=== PATIENT | female | born 1985 | race Two or more races ===

== ENCOUNTER 2023-09-25 18:48 | Inpatient (IN) | payer BC, MEDICAID ==
[~2023-09-25] VITALS: Ht 154.9 cm; Wt 74.7 kg
[2023-09-25 20:04] LABS: Basophils # (auto) 0.1 10 ^3/uL (0-0.2); Basophils % (auto) 0.4 % (0.0-2.0); Eosinophils # (auto) 0.1 10 ^3/uL (0-0.8); Eosinophils % (auto) 0.3 % (0.0-7.0); Hematocrit 43.7 % (36.0-46.0); Hemoglobin 14.2 g/dL (12.2-16.2); Lymphocytes # (auto) 2.8 10 ^3/uL (0.4-5.4); Lymphocytes % (auto) 11.3 % (10.0-50.0); Mean Corpuscular Hemoglobin 30.5 pg (28.0-32.0); Mean Corpuscular Hgb Conc. 32.4 g/dL (32.0-36.0); Mean Corpuscular Volume 94.1 fL (80.0-100.0); Monocytes # (auto) 1.5 10 ^3/uL (0-1.3); Monocytes % (auto) 6.3 % (0.0-12.0); Neutrophils # (auto) 19.9 10 ^3/uL (1.6-8.6); Neutrophils % (auto) 81.7 % (37.0-80.0); Red Blood Cells 4.65 10^6/uL (4.0-5.20); Red Cell Distribution Width 14.3 % (11.8-14.3); White Blood Cell 24.4 10^3/uL (4.4-10.8)
[2023-09-25 20:23] LABS: Alanine Aminotransferase < 9 U/L (7-40); Albumin 4.5 g/dL (3.2-4.8); Alkaline Phosphatase 76 U/L (46-116); Anion Gap 7 (5-15); Aspartate Aminotransferase 10 U/L (13-40); BUN/Creatinine Ratio 9.9 (10.0-20.0); Bilirubin, Total 1.2 mg/dL (0.2-1.0); Blood Urea Nitrogen 8 mg/dL (9-23); Calcium 9.6 mg/dL (8.5-10.1); Carbon Dioxide 25 mmol/L (20-30); Chloride 107 mmol/L (98-107); Glucose 94 mg/dL (74-106); Potassium 4.5 mmol/L (3.5-5.1); Sodium 139 mmol/L (136-145); Total Protein 7.3 g/dL (5.7-8.2)
[2023-09-25] MEDS: KETOROLAC TROMETH 60MG/2ML VIAL IM ONE (20:35)
[2023-09-25 21:00] VITALS: PULSE 91; RESP 20; O2SAT 96
[2023-09-25] MEDS ORDERED: ACETAMINOPHEN 325 MG TAB PO PRN (21:30)
[2023-09-25] MEDS ORDERED: metroNIDAZOLE 500MG/100ML 100 ML IV ONE (21:45)
[2023-09-25 22:04] LABS: INR 1.04 (0.9-1.15); Partial Thromboplastin Time 30.3 SEC (24.5-34.5); Prothrombin Time 10.9 sec (9.3-11.8)
[2023-09-25] MEDS: PIPERACILLIN-TAZOB 3.375GM 100 ML IV ONE (22:18)
[2023-09-25] MEDS: SODIUM CHLORIDE 0.9% 1,000 ML IV ONE (22:19)
[2023-09-25] MEDS: metroNIDAZOLE 500MG/100ML 100 ML IV ONE (22:19)
[2023-09-25] MEDS ORDERED: MORPHINE SULFATE INJ 2 MG/ml SYRG IV PRN (22:45)
[2023-09-25] MEDS ORDERED: NITROGLYCERIN 0.4 MG SL TAB SL PRN (22:45)
[2023-09-26] VITALS (7 sets, daily range): BP systolic 92–106; BP diastolic 50–63; PULSE 71–83; RESP 12–18; TEMP 97.6–100; O2SAT 97–98
[2023-09-26] MEDS: D5W/SOD CHLO 0.9% 1,000 ML IV SCH (01:32)
[2023-09-26] MEDS: ONDANSETRON HCL 4 MG/2 ML VIAL IV PRN (01:56)
[2023-09-26] MEDS: MORPHINE SULFATE INJ 2 MG/ml SYRG IV PRN (01:56)
[2023-09-26 02:10] LABS: Urine Bacteria FEW /hpf (None Seen); Urine Blood 3+ /uL (Negative); Urine Clarity HAZY (Clear); Urine Color Yellow (Yellow); Urine Protein, UAD 1+ (Negative); Urine Specific Gravity 1.023 (1.001-1.035); Urine Urobilinogen Normal (Negative); Urine WBC 12 /hpf (0 - 5); Urine pH 6.5 (5.0-8.0)
[2023-09-26 05:56] LABS: Basophils # (auto) 0.1 10 ^3/uL (0-0.2); Basophils % (auto) 0.6 % (0.0-2.0); Eosinophils # (auto) 0.1 10 ^3/uL (0-0.8); Eosinophils % (auto) 0.8 % (0.0-7.0); Hematocrit 37.2 % (36.0-46.0); Hemoglobin 12.5 g/dL (12.2-16.2); Lymphocytes # (auto) 2.9 10 ^3/uL (0.4-5.4); Lymphocytes % (auto) 17.8 % (10.0-50.0); Mean Corpuscular Hemoglobin 31.4 pg (28.0-32.0); Mean Corpuscular Hgb Conc. 33.5 g/dL (32.0-36.0); Mean Corpuscular Volume 93.5 fL (80.0-100.0); Monocytes # (auto) 1.1 10 ^3/uL (0-1.3); Monocytes % (auto) 6.9 % (0.0-12.0); Neutrophils # (auto) 12.2 10 ^3/uL (1.6-8.6); Neutrophils % (auto) 73.9 % (37.0-80.0); Nucleated Red Blood Cells % 0.1 %; Red Blood Cells 3.98 10^6/uL (4.0-5.20); Red Cell Distribution Width 14.5 % (11.8-14.3); White Blood Cell 16.6 10^3/uL (4.4-10.8)
[2023-09-26 06:14] LABS: Albumin 3.4 g/dL (3.2-4.8); Alkaline Phosphatase 58 U/L (46-116); Anion Gap 5 (5-15); Aspartate Aminotransferase < 8 U/L (13-40); BUN/Creatinine Ratio 10.5 (10.0-20.0); Bilirubin, Total 1.1 mg/dL (0.2-1.0); Blood Urea Nitrogen 8 mg/dL (9-23); Calcium 8.1 mg/dL (8.7-10.4); Carbon Dioxide 23 mmol/L (20-30); Chloride 111 mmol/L (98-107); Glucose 93 mg/dL (74-106); Potassium 3.9 mmol/L (3.5-5.1); Sodium 139 mmol/L (136-145); Total Protein 5.7 g/dL (5.7-8.2)
[2023-09-26 06:21] LABS: Alanine Aminotransferase < 9 U/L (7-40)
[2023-09-26] MEDS: metroNIDAZOLE 500MG/100ML 100 ML IV SCH (06:44)
[2023-09-26] MEDS: cefTRIAXone 1GM/50ML D5W 50 ML IV SCH (09:49)
[2023-09-26] MEDS: HYDROcodone-ACET 5/325MG TAB PO PRN (09:49)
[2023-09-26] MEDS: ACETAMINOPHEN IV 1000 MG/100ML (10MG/ML) IV ONE (14:00)
[2023-09-26] MEDS: CELECOXIB 100 MG CAP PO ONE (14:00)
[2023-09-26] MEDS: GABAPENTIN 400 MG CAP PO ONE (14:00)
[2023-09-26] MEDS ORDERED: GLYCOPYRROLATE 0.2 MG/ML 1ML VIAL ONE (14:11)
[2023-09-26] MEDS ORDERED: ROCURONIUM 10MG/ML 10ML VIAL IV ONE (14:11)
[2023-09-26] MEDS ORDERED: PROPOFOL 10 MG/ML 20 ML IV ONE (14:11)
[2023-09-26] MEDS ORDERED: KETAMINE 50mg/ML 1ml syringe ONE (14:12)
[2023-09-26] MEDS ORDERED: fentaNYL CITRATE 100 MCG/2 ML VL ONE (14:13)
[2023-09-26] MEDS ORDERED: ONDANSETRON HCL 4 MG/2 ML VIAL ONE (14:13)
[2023-09-26] MEDS ORDERED: LIDOCAINE 2% (LOCAL ANESTH.) PF 5ml SDV ONE (14:13)
[2023-09-26] MEDS ORDERED: DexAMETHasone SOD PHOS 10MG/1ML VIAL INJ ONE (14:13)
[2023-09-26] MEDS ORDERED: SUGAMMADEX 200mg/2ml Vial (100MG/ML) IV ONE (14:13)
[2023-09-26] MEDS ORDERED: KETOROLAC TROMETH 30 MG/ML 1ML VIAL ONE (14:13)
[2023-09-26] MEDS ORDERED: PHENYLEPHRINE HCL 10 MG/ML VL ONE (15:18)
[2023-09-26] MEDS ORDERED: SODIUM CHLORIDE LOCK 10 ML ONE (15:18)
[2023-09-26] MEDS: HYDROmorphone HCL 2 MG/ML VL/or syr ONE (17:00)
[2023-09-26] MEDS ORDERED: LABETALOL HCL 5 MG/ML 4ML SYRINGE IV PRN (17:15)
[2023-09-26] MEDS ORDERED: hydrALAZINE HCL 20 MG/ML VL IV PRN (17:15)
[2023-09-26] MEDS ORDERED: HYDROmorphone HCL 2 MG/ML VL/or syr IV PRN (17:15)
[2023-09-26] MEDS ORDERED: FLUMAZENIL 0.1 MG/ML INJ 10ML MDV IV PRN (17:15)
[2023-09-26] MEDS ORDERED: ePHEDrine SULFATE 50 MG/ML AMP IV PRN (17:15)
[2023-09-26] MEDS ORDERED: ONDANSETRON HCL 4 MG/2 ML VIAL IV PRN (17:15)
[2023-09-26] MEDS ORDERED: NALOXONE HCL 0.4 MG/ML VIAL IV PRN (17:15)
[2023-09-26] MEDS ORDERED: fentaNYL CITRATE 100 MCG/2 ML VL IV PRN (17:15)
[2023-09-26] MEDS: MEPERIDINE HCL (25 MG/ML) 1ML VIAL IV ONE (17:45)
[2023-09-26] MEDS: HYDROmorphone HCL 2 MG/ML VL/or syr IV PRN (22:11)
[2023-09-27] VITALS (8 sets, daily range): BP systolic 92–102; BP diastolic 34–57; PULSE 47–58; RESP 16–55; TEMP 98.4–98.7; O2SAT 95–99
[2023-09-27 06:27] LABS: Basophils # (auto) 0 10 ^3/uL (0-0.2); Basophils % (auto) 0.2 % (0.0-2.0); Eosinophils # (auto) 0 10 ^3/uL (0-0.8); Eosinophils % (auto) 0.1 % (0.0-7.0); Hemoglobin 11.3 g/dL (12.2-16.2); Lymphocytes # (auto) 1.3 10 ^3/uL (0.4-5.4); Lymphocytes % (auto) 10.5 % (10.0-50.0); Mean Corpuscular Hemoglobin 31.4 pg (28.0-32.0); Mean Corpuscular Hgb Conc. 33.3 g/dL (32.0-36.0); Mean Corpuscular Volume 94.4 fL (80.0-100.0); Monocytes # (auto) 0.7 10 ^3/uL (0-1.3); Monocytes % (auto) 5.3 % (0.0-12.0); Neutrophils # (auto) 10.4 10 ^3/uL (1.6-8.6); Neutrophils % (auto) 83.9 % (37.0-80.0); Red Blood Cells 3.61 10^6/uL (4.0-5.20); Red Cell Distribution Width 14.4 % (11.8-14.3); White Blood Cell 12.4 10^3/uL (4.4-10.8)
[2023-09-27 06:31] LABS: Alkaline Phosphatase 50 U/L (46-116); Anion Gap 4 (5-15); Aspartate Aminotransferase < 8 U/L (13-40); BUN/Creatinine Ratio 12.3 (10.0-20.0); Blood Urea Nitrogen 8 mg/dL (9-23); Calcium 8.2 mg/dL (8.7-10.4); Carbon Dioxide 24 mmol/L (20-30); Chloride 108 mmol/L (98-107); Glucose 126 mg/dL (74-106); Potassium 4.8 mmol/L (3.5-5.1); Sodium 136 mmol/L (136-145)
[2023-09-27 06:32] LABS: Albumin 3.3 g/dL (3.2-4.8); Bilirubin, Total 0.4 mg/dL (0.2-1.0); Total Protein 5.5 g/dL (5.7-8.2)
[2023-09-27 06:48] LABS: Alanine Aminotransferase < 9 U/L (7-40)
[2023-09-27] MEDS: oxyCODONE HCL 5MG TAB PO PRN (08:36)
[2023-09-27] MEDS: SODIUM CHLORIDE 0.9% 1,000 ML IV ONE (11:29)
[2023-09-27] MEDS: MORPHINE SULFATE INJ 2 MG/ml SYRG IV PRN (12:55)
[2023-09-27] MEDS: HYDROmorphone HCL 2 MG/ML VL/or syr IV PRN (22:25)
[2023-09-28] VITALS (7 sets, daily range): BP systolic 90–93; BP diastolic 40–55; PULSE 50–82; RESP 15–16; TEMP 97.9–98.5; O2SAT 96–98
[2023-09-28] MEDS: CELECOXIB 100 MG CAP ONE (08:44)
[2023-09-28] MEDS: LIDOCAINE 2% JELLY 11ml (GLYDO) ONE (08:45)
[2023-09-28] MEDS: SODIUM CHLORIDE 0.9% 500 ML IV ONE (08:45)
[2023-09-28] MEDS: BUPIVACAINE 0.5% P/F INJ 10 ML VIAL ONE (08:45)
[2023-09-28] MEDS: ACETAMINOPHEN IV 100 ML IV ONE (08:45)
[2023-09-28] MEDS: GABAPENTIN 400 MG CAP ONE (08:45)
[2023-09-28] MEDS: MEPERIDINE HCL (25 MG/ML) 1ML VIAL ONE (08:45)
[2023-09-28] MEDS: DOCUSATE SOD 100 MG CAP PO PRN (09:12)
[2023-09-29] VITALS (7 sets, daily range): BP systolic 80–109; BP diastolic 37–54; PULSE 55–71; RESP 15–22; TEMP 98–98.6; O2SAT 96–100
[2023-09-29] MEDS: LACTULOSE 20Gm/30ML SOLN PO SCH (15:37)
[2023-09-30] VITALS (7 sets, daily range): BP systolic 91–112; BP diastolic 48–60; PULSE 58–82; RESP 16–22; TEMP 98–98.7; O2SAT 95–98
[2023-09-30] MEDS: KETOROLAC TROMETH 30 MG/ML 1ML VIAL IV PRN (20:04)
[2023-10-01 05:00] VITALS: BP 91/46; PULSE 62; RESP 20; TEMP 98.1; O2SAT 98
[2023-10-01] MEDS ORDERED: HYDR-4902 PO (07:43)
[2023-10-01] MEDS ORDERED: CEPH500T PO (07:43)
[2023-10-01 08:00] VITALS: PULSE 65
[2023-10-01 08:25] VITALS: BP 98/44; PULSE 72; RESP 16; TEMP 98.6; O2SAT 97
[2023-10-01 12:25] VITALS: BP 103/52; PULSE 67; RESP 18; TEMP 98.2; O2SAT 97
== END 2023-10-01 14:15 | disposition home or self-care (01) | DRG 398 ==
LOC: ER 18:48 → TELE 22:32 → TELE-CENTR 22:32
PROVIDERS: ADMIT Nurse Practitioner Family; ATTEND Nurse Practitioner
PROC: 0W9G40Z Drainage of Peritoneal Cavity with Drainage Device, Percutaneous Endoscopic Approach (ICD-10-PCS; 2023-09-26)
PROC: 0DTJ4ZZ Resection of Appendix, Percutaneous Endoscopic Approach (ICD-10-PCS; principal; 2023-09-26 15:03)
DX: K35.33 Acute appendicitis with perforation, localized peritonitis, and gangrene, with abscess (principal); N39.0 Urinary tract infection, site not specified; I95.81 Postprocedural hypotension; E66.9 Obesity, unspecified; Z68.31 Body mass index [BMI] 31.0-31.9, adult
CPT/HCPCS: 36415; 74176; 80053; 81001; 81025; 83605; 85025; 85610; 85730; 87040; 87086; G0378; J0131; J1100; J1885; J2001; J2405; J2543; J2704; J3490; J7042

== ENCOUNTER 2024-01-26 16:20 | Emergency (ER) | payer BC, MEDICAID ==
[~2024-01-26] VITALS: Ht 154.9 cm; Wt 69.8 kg
[~2024-01-26 16:20] MED LIST: CEPH500T PO; HYDR-4902 PO
[2024-01-26 17:44] LABS: Urine Bacteria FEW /hpf (None Seen); Urine Blood 3+ /uL (Negative); Urine Budding Yeast OCCASIONAL /hpf (None Seen); Urine Clarity Turbid (Clear); Urine Color Light-Orange (Yellow); Urine Protein, UAD 2+ (Negative); Urine Specific Gravity 1.022 (1.001-1.035); Urine Urobilinogen 4 mg/dL (Negative); Urine WBC 428 /hpf (0 - 5)
[2024-01-26 17:48] LABS: Basophils # (auto) 0 10 ^3/uL (0-0.2); Basophils % (auto) 0.2 % (0.0-2.0); Eosinophils # (auto) 0 10 ^3/uL (0-0.8); Eosinophils % (auto) 0.1 % (0.0-7.0); Hematocrit 41.3 % (36.0-46.0); Hemoglobin 13.7 g/dL (12.2-16.2); Lymphocytes # (auto) 1.6 10 ^3/uL (0.4-5.4); Lymphocytes % (auto) 5.7 % (10.0-50.0); Mean Corpuscular Hemoglobin 30.9 pg (28.0-32.0); Mean Corpuscular Hgb Conc. 33.3 g/dL (32.0-36.0); Mean Corpuscular Volume 92.8 fL (80.0-100.0); Monocytes # (auto) 2.4 10 ^3/uL (0-1.3); Monocytes % (auto) 8.3 % (0.0-12.0); Neutrophils # (auto) 24.6 10 ^3/uL (1.6-8.6); Neutrophils % (auto) 85.7 % (37.0-80.0); Red Blood Cells 4.45 10^6/uL (4.0-5.20); White Blood Cell 28.7 10^3/uL (4.4-10.8)
[2024-01-26 18:08] LABS: Alanine Aminotransferase 13 U/L (7-40); Albumin 4.1 g/dL (3.2-4.8); Alkaline Phosphatase 81 U/L (46-116); Anion Gap 10 (5-15); Aspartate Aminotransferase 10 U/L (13-40); BUN/Creatinine Ratio 10.8 (10.0-20.0); Blood Urea Nitrogen 9 mg/dL (9-23); Calcium 9.3 mg/dL (8.5-10.1); Carbon Dioxide 21 mmol/L (20-30); Chloride 104 mmol/L (98-107); Glucose 110 mg/dL (74-106); Sodium 135 mmol/L (136-145)
[2024-01-26 18:09] LABS: Total Protein 7.2 g/dL (5.7-8.2)
[2024-01-26] MEDS: cefTRIAXone SOD 1,000 MG VL IM ONE (18:41)
[2024-01-26] MEDS: KETOROLAC TROMETH 30 MG/ML 1ML VIAL IM ONE (18:42)
[2024-01-26] MEDS ORDERED: CIPR-173 PO (19:24)
[2024-01-26 20:00] VITALS: BP 105/46; PULSE 114; RESP 19; O2SAT 96
[2024-01-26 20:04] VITALS: TEMP 100.8
[2024-01-26] MEDS: ACETAMINOPHEN 325 MG TAB PO ONE (20:04)
== END 2024-01-26 20:07 | disposition home or self-care (01) ==
LOC: ER 16:20
DX: N39.0 Urinary tract infection, site not specified (principal); Z98.890 Other specified postprocedural states; Z79.899 Other long term (current) drug therapy
CPT/HCPCS: 36415; 74176; 80053; 81001; 83605; 85025; 96372; 99285; J0696; J1885